=== PATIENT | male | born 1990 | race Caucasian/White ===

== ENCOUNTER 2023-12-13 18:33 | Emergency (ER) | payer BC ==
[2023-12-13 18:40] VITALS: BP 122/81; RESP 18; TEMP 97.8
--- NOTE | 2023-12-13 19:12 | ED ---
Lower Extremity Injury HPI - General Chief Complaint: Extremity Injury, Lower Stated Complaint: L ankle injury Time Seen by Provider: 12/13/23 18:33 Source: patient, EMS, RN notes reviewed Mode of arrival: EMS Limitations: no limitations - History of Present Illness Initial Comments: 33-year-old male who states he was on a water obstacle course when he apparently was knocked off. He twisted his left ankle and knee he complains of pain to the medial ankle and medial knee also some left hip pain no head neck or back pain no loss of consciousness. He was brought in by EMS he was given IV pain medication she states the pain is about 4/10 in severity at this time. He does have some numbness to his foot he states a little bit of numbness to his left fingers but no motor deficits no neck pain again no back pain. - Related Data Allergies Allergy/AdvReac Type Severity Reaction Status Date / Time No Known Allergies Allergy Verified 12/13/23 18:40 Review of Systems ROS Statement: Those systems with pertinent positive or pertinent negative responses have been documented in the HPI. ROS Other: All systems not noted in ROS Statement are negative. Past Medical History History of Any Multi-Drug Resistant Organisms: None Reported Past Psychological History: No Psychological Hx Reported Smoking Status: Former smoker, Vaper Past Alcohol Use History: None Reported Past Drug Use History: None Reported General Exam - General Exam Comments Initial Comments: This is a well-developed well-nourished awake alert oriented x 4 male [place] Coma Scale of 15 Limitations: no limitations General appearance: alert, in no apparent distress Head exam: Present: atraumatic, normocephalic, normal inspection Eye exam: Present: normal appearance, PERRL, EOMI. Absent: scleral icterus, conjunctival injection, periorbital swelling ENT exam: Present: normal exam, mucous membranes moist Neck exam: Present: normal inspection, full ROM, other (No stridor JVD or bruits). Absent: tenderness, meningismus, lymphadenopathy Respiratory exam: Present: normal lung sounds bilaterally. Absent: respiratory distress, wheezes, rales, rhonchi, stridor Cardiovascular Exam: Present: regular rate, normal rhythm, normal heart sounds. Absent: systolic murmur, diastolic murmur, rubs, gallop, clicks GI/Abdominal exam: Present: soft, normal bowel sounds. Absent: distended, tenderness, guarding, rebound, rigid Extremities exam: Present: normal inspection, full ROM, tenderness (Newness over the posterior left hip medial left knee and medial ankle but no definitive deformity no sensory deficit no pulse deficit), normal capillary refill. Absent: pedal edema, joint swelling, calf tenderness Back exam: Present: normal inspection Neurological exam: Present: alert, oriented X3, CN II-XII intact Psychiatric exam: Present: normal affect, normal mood Skin exam: Present: warm, dry, intact, normal color. Absent: rash Course Vital Signs 12/13/23 18:34 Temperature 97.8 F Pulse Rate 85 Respiratory 18 Rate Blood Pressure 122/81 O2 Sat by Pulse 98 Oximetry Medical Decision Making - Medical Decision Making Reassessment of the patient and explanation of the imaging findings patient is having discomfort in the left knee and ankle he is going to get IV Toradol. I did discuss the findings with him and his father who are present no fractures are identified clinical evidence of left knee sprain and left ankle sprain. Patient will be placed on Danny wrap instruction for ice elevation [id number] Advil 4 tablets every 6 hours and follow-up with orthopedics he has a doctor in [facility] so he will get copies of the imaging and reports. Was pt. sent in by a medical professional or institution (, PA, HABILITATION SPECIALIST, urgent care, hospital, or [place] [facility] facility...) When possible be specific @ -No Did you speak to anyone other than the patient for history (EMS, parent, family, police, friend...)? What history was obtained from this source @ -Medics upon arrival Did you review nursing and triage notes (agree or disagree)? Why? @ -I reviewed and agree with nursing and triage notes Were old charts reviewed (outside hosp., previous admission, EMS record, old EKG, old radiological studies, urgent care reports/EKG's, [place] [facility] records)? Report findings @ -No old charts were reviewed Differential Diagnosis (chest pain, altered mental status, abdominal pain women, abdominal pain men, vaginal bleeding, weakness, fever, dyspnea, syncope, headache, dizziness, GI bleed, back pain, seizure, CVA, palpatations, mental health, musculoskeletal)? @ -Trauma to the left knee and ankle with joint above and joint below considerations EKG interpreted by me (3pts min.). @ -Not indicated X-rays interpreted by me (1pt min.). @ -All imaging interpreted by me no evidence of acute fractures or subluxations. CT interpreted by me (1pt min.). @ -None done U/S interpreted by me (1pt. min.). @ -None done What testing was considered but not performed or refused? (CT, X-rays, U/S, labs)? Why? @ -None What meds were considered but not given or refused? Why? @ -None Did you discuss the management of the patient with other professionals (professionals i.e. Dr., PA, HABILITATION SPECIALIST, lab, RT, psych nurse, social service director, creasing machine operator, teacher, emergency communications officer, case managers)? Give summary @ -No Was smoking cessation discussed for >3mins.? @ -No Was critical care preformed (if so, how long)? @ -No Were there social determinants of health that impacted care today? How? (Homelessness, low income, unemployed, alcoholism, drug addiction, transportation, low edu. Level, literacy, decrease access to med. care, fpc, rehab)? @ -No Was there de-escalation of care discussed even if they declined (Discuss DNR or withdrawal of care, Hospice)? DNR status @ -No What co-morbidities impacted this encounter? (DM, HTN, Smoking, COPD, CAD, Cancer, CVA, ARF, Chemo, Hep., AIDS, mental health diagnosis, sleep apnea, morbid obesity)? @ -None Was patient admitted / discharged? Hospital course, mention meds given and route, prescriptions, significant lab abnormalities, going to OR and other pertinent info. @ -Hospital course patient was discharged with follow-up with his doctor and/or orthopedic surgeon of choice Undiagnosed new problem with uncertain prognosis? @ -No Drug Therapy requiring intensive monitoring for toxicity (Heparin, Nitro, Insulin, Cardizem)? @ -No Were any procedures done? @ -No Diagnosis/symptom? @ -Left knee sprain, left ankle sprain, left hip pain Acute, or Chronic, or Acute on Chronic? @ -Acute Uncomplicated (without systemic symptoms) or Complicated (systemic symptoms)? @ -Default Side effects of treatment? @ -No Exacerbation, Progression, or Severe Exacerbation? @ -No Poses a threat to life or bodily function? How? (Chest pain, [place], [place], pneumonia, PE, COPD, DKA, ARF, appy, cholecystitis, CVA, Diverticulitis, Homicidal, Suicidal, threat to staff... and all critical care pts) @ -No Disposition Clinical Impression: Left knee sprain, Left ankle sprain, Left hip pain Disposition: HOME SELF-CARE Condition: Good Instructions (If sedation given, give patient instructions): Knee Sprain (ED), Ankle Sprain (ED), Hip Pain (ED) Additional Instructions: Ice to affected areas x 24 hours with elevation of the left lower extremity, [id number] Advil 200 mg number 4 tablets every 6 hours as needed pain also follow-up with your doctor or your orthopedic surgeon of choice. Is patient prescribed a controlled substance at d/c from ED?: No Referrals: None,Stated [Primary Care Provider] - 1-2 days Time of Disposition: 20:18 Decision Date: 12/13/23 Decision Time: 20:18
--- NOTE | 2023-12-13 19:33 | XR ---
EXAMINATION TYPE: XR ankle complete LT DATE OF EXAM: 12/13/2023 COMPARISON: NONE HISTORY: Pain TECHNIQUE: 3 views of the left ankle are submitted for evaluation. FINDINGS: There is no evidence for fracture or dislocation. Well-corticated ossific density adjacent to the lateral malleolus may reflect unfused ossicle or remote traumatic injury. Ankle mortise is int act. Mild lateral soft tissue swelling. IMPRESSION: 1. No evidence for acute fracture.
--- NOTE | 2023-12-13 19:33 | XR ---
EXAMINATION TYPE: XR foot complete LT DATE OF EXAM: 12/13/2023 CLINICAL HISTORY: pain TECHNIQUE: Frontal, lateral and oblique images of the left foot are obtained. COMPARISON: None. FINDINGS: There is no acute fracture/dislocation evident. The joint spaces appear within normal garg its. The overlying soft tissue appears unremarkable. IMPRESSION: There is no acute fracture or dislocation. ICD 10 NO FRACTURE, INITIAL EVALUATION
--- NOTE | 2023-12-13 19:58 | XR ---
EXAMINATION TYPE: XR knee 4V LT DATE OF EXAM: 12/13/2023 CLINICAL HISTORY: pain TECHNIQUE: Three views of the left knee are obtained. Additional patellar sunrise view obtained. COMPARISON: None. FINDINGS: There is no acute fracture/dislocation. The tri-compartment joint spaces appear within no rmal limits. The overlying soft tissue appears unremarkable. IMPRESSION: There is no acute fracture or dislocation ICD 10 NO FRACTURE, INITIAL EVALUATION
--- NOTE | 2023-12-13 19:59 | XR ---
EXAMINATION TYPE: XR Hip LT and AP Pelvis DATE OF EXAM: 12/13/2023 CLINICAL HISTORY: pain TECHNIQUE: Single view the pelvis is submitted. 2 views of the left hip are submitted. FINDINGS: No evidence for fracture, dislocation or bony lesion. Joint spaces are well-preserved. S I joints appear symmetric. IMPRESSION: 1. No acute fracture or dislocation seen. ICD 10 NO FRACTURE, INITIAL EVALUATION
[2023-12-13] MEDS ORDERED: KETOROLAC 15 MG/ML 1 ML VIAL IVP STA (20:07)
[2023-12-13 20:54] VITALS: PULSE 81
== END 2023-12-13 20:55 | disposition home or self-care (01) ==
LOC: EC 18:33
DX: S83.92XA Sprain of unspecified site of left knee, initial encounter (principal); S93.402A Sprain of unspecified ligament of left ankle, initial encounter; M25.552 Pain in left hip; F17.290 Nicotine dependence, other tobacco product, uncomplicated; X50.1XXA Overexertion from prolonged static or awkward postures, initial encounter
CPT/HCPCS: 73502; 99284